=== PATIENT | male | born 1965 | race Two or more races ===

== ENCOUNTER 2025-07-06 10:44 | Emergency (ER) | payer MEDICAID, SELFPAY ==
[2025-07-06 11:03] VITALS: BP 136/84; PULSE 97; RESP 18; TEMP 37; O2SAT 96
--- NOTE | 2025-07-06 11:09 | EKG_ITS ---
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1965 Requested By: Brian Beach Order Number: [id number] Reading MD: Brian Beach Measurements Intervals [place] Rate: 97 P: 63 ME: 141 QRS: 52 QRSD: 106 T: 50 QT: 327 QTc: 417 Interpretive Statements SINUS RHYTHM MODERATE T-WAVE ABNORMALITY, CONSIDER LATERAL ISCHEMIA [-0.1+ mV T-WAVE IN I/aVL/V5/V6] MODERATE T-WAVE ABNORMALITY, CONSIDER INFERIOR ISCHEMIA [-0.1+ mV T-WAVE IN II/aVF] Compared to ECG 12/16/2023 14:08:30 T-wave abnormality now present Possible ischemia now present Sinus tachycardia no longer present Left ventricular hypertrophy no longer present ST (T wave) deviation no longer present /store/S0/[id number]
--- NOTE | 2025-07-06 11:09 | XR_ITS ---
Examination: PA lateral chest 2 views TECHNIQUE: Upright PA lateral chest 2 views Date and time: July 06, 2025 1121 hours, comparison December 16, 2023 INDICATIONS: Chest pain shortness of breath beginning 2 weeks ago FINDINGS: Normal heart size. CABG. Numerous surgical clips in the right exit low. No pneumonia or pulmonary edema Moderate thoracic spondylosis IMPRESSION: No active disease
--- NOTE | 2025-07-06 11:09 | PD.EDRME ---
Rapid Medical Screening Exam RME Arrival date/time: 07/06/25 10:44 60-year-old male with a history of type 2 diabetes, ACS, and open heart surgery and heart transplant done on 2021, hypertension presents to the emergency room with a chief complaint of shortness of breath and coughing up phlegm x 3 days I have greeted and performed a focused initial assessment of this patient. A comprehensive ED assessment and evaluation of the patient, analysis of all test results, and completion of the medical decision making process will be conducted by additional ED providers. Chief Complaint: Flu Like Symptoms Time Seen by Provider: 07/06/25 10:59 Vital signs: Vital Signs Temperature 98.6 F 07/06/25 11:03 Pulse Rate 97 07/06/25 11:03 Respiratory Rate 18 07/06/25 11:03 Blood Pressure 136/84 H 07/06/25 11:03 Pulse Oximetry (%) 96 07/06/25 11:03 Oxygen Delivery Method Room Air 07/06/25 11:03 Vital signs reviewed by provider: Yes
[2025-07-06 11:40] LABS: Basophils # (Auto) 0.0 Thou/mm3 (0.0-0.2); Basophils % (Auto) 0 % (0-2.5); Eosinophils # (Auto) 0.2 Thou/mm3 (0.0-0.5); Eosinophils % (Auto) 2 % (0-10); Hematocrit 34.8 % (41.0-53.0); Hemoglobin 11.4 g/dL (13.5-16.0); Immature Granulocytes Auto 0.04 Thou/mm3 (0.00-0.00); Lymphocytes # (Auto) 1.8 Thou/mm3 (1.0-4.8); Lymphocytes % (Auto) 17 % (10-50); Mean Corpuscular HGB Conc 32.8 g/dl (31.0-37.0); Mean Corpuscular Hemoglobin 28.5 pg (25.0-35.0); Mean Corpuscular Volume 87 fL (80-100); Monocytes # (Auto) 0.9 Thou/mm3 (0.0-0.8); Monocytes % (Auto) 9 % (0-12); Neutrophils # (Auto) 7.3 Thou/mm3 (1.8-7.7); Neutrophils % (Auto) 72 % (37-80); Nucleated Red Blood Cell # 0.00 Thou/mm3 (0.00-0.00); Nucleated Red Blood Cell % 0 /100 WBC (0); Platelet Count 190 Thou/mm3 (140-440); RDW Standard Deviation 43.0 fL (35.1-43.9); Red Blood Count 4.00 Miln/mm3 (4.50-5.90); White Blood Count 10.2 Thou/mm3 (3.8-10.6)
[2025-07-06 11:53] LABS: INR 1.0 (0.9-1.3); Partial Thromboplastin Time 27.9 Seconds (22.0-36.0); Prothrombin Time 11.4 Seconds (9.0-12.2)
[2025-07-06 11:57] LABS: B-Type Natriuretic Peptide 125 pg/mL (0-100)
[2025-07-06 12:07] LABS: Alanine Aminotransferase 27 U/L (10-49); Albumin, Serum 4.4 gm/dL (3.4-4.8); Albumin/Globulin Ratio 1.5 (1.2-2.2); Alkaline Phosphatase 91 U/L (46-116); Anion Gap 11 (7-16); Aspartate Amino Transferase 30 U/L (0-34); BUN/Creatinine Ratio 15 Ratio (12-20); Bilirubin,Total 1.1 mg/dL (0.3-1.2); Blood Urea Nitrogen 34 mg/dL (9-23); Calcium 10.0 mg/dL (8.3-10.6); Calcium (Corrected) 10.0 mg/dL (8.5-10.1); Carbon Dioxide 22.3 mMol/L (20.0-31.0); Chloride 103 mMol/L (98-107); Creatinine (Component) 2.3 mg/dL (0.6-1.3); Estimated Creatinine Clearance 38.7 mL/min (>60); Globulin 2.9 gm/dL (2.3-3.5); Glucose 177 mg/dL (74-106); Osmolality,Calculated 283 (275-295); Potassium 4.8 mMol/L (3.4-5.1); Sodium 136 mMol/L (136-145); Total Protein 7.3 gm/dL (5.7-8.2); Troponin I < 0.020 ng/mL (0.0-0.045); eGFR 31 See Note
[2025-07-06 12:23] LABS: Collection Type, Urine Clean Catch
--- NOTE | 2025-07-06 12:29 | PD.EDRME ---
Rapid Medical Screening Exam RME Arrival date/time: 07/06/25 10:44 07/06/25 10:44 60-year-old male with a history of type 2 diabetes, ACS, and open heart surgery and heart transplant done on 2021, hypertension presents to the emergency room with a chief complaint of shortness of breath and coughing up phlegm x 3 days I have greeted and performed a focused initial assessment of this patient. A comprehensive ED assessment and evaluation of the patient, analysis of all test results, and completion of the medical decision making process will be conducted by additional ED providers. Chief Complaint: Flu Like Symptoms Time Seen by Provider: 07/06/25 10:59 Vital signs: Vital Signs Temperature 98.6 F 07/06/25 11:03 Pulse Rate 97 07/06/25 11:03 Respiratory Rate 18 07/06/25 11:03 Blood Pressure 136/84 H 07/06/25 11:03 Pulse Oximetry (%) 96 07/06/25 11:03 Oxygen Delivery Method Room Air 07/06/25 11:03 RME Narrative: 07/06/25 10:44 60-year-old male with a history of type 2 diabetes, ACS, and open heart surgery and heart transplant done on 2021, hypertension presents to the emergency room with a chief complaint of shortness of breath and coughing up phlegm x 3 days I have greeted and performed a focused initial assessment of this patient. A comprehensive ED assessment and evaluation of the patient, analysis of all test results, and completion of the medical decision making process will be conducted by additional ED providers.
[2025-07-06 12:45] LABS: Bilirubin,Urine Negative (Negative); Blood,Urine Negative (Negative); Clarity,Urine Clear (Clear/Hazy); Color,Urine Lt-Yellow (Lt Yel-Yel); Culture Indicated,Urine Not Indicated; Glucose, Urine 4+ (Negative); Ketones,Urine Negative (Negative); Leukocyte Esterase,Urine Negative (Negative); Nitrite,Urine Negative (Negative); PH,Urine 6.0 (5.0-7.0); Protein,Urine Negative (Neg - Trace); RBC,Urine < 1 /hpf (0-3); Specific Gravity,Urine 1.024 (1.001-1.035); Squamous Epithelial Cell,Urine 1 /hpf (0-5); Urobilinogen,Urine Negative mg/dL (0.0-1.0); WBC,Urine < 1 /hpf (0-5)
[2025-07-06 12:48] VITALS: BP 115/80; PULSE 99; RESP 16; TEMP 36.3; O2SAT 98
--- NOTE | 2025-07-06 13:14 | EDNOTE_ITS ---
Upper Respiratory Inf. RME/HPI General Chief Complaint: Flu Like Symptoms Stated Complaint: COUGH X 2 WKS Time Seen by Provider: 07/06/25 10:59 Arrival date/time: 07/06/25 10:44 RME / HPI RME / HPI Narrative: 07/06/25 10:44 60-year-old male with a history of type 2 diabetes, ACS, and open heart surgery and heart transplant done on 2021, hypertension presents to the emergency room with a chief complaint of shortness of breath and coughing up phlegm x 3 days I have greeted and performed a focused initial assessment of this patient. A comprehensive ED assessment and evaluation of the patient, analysis of all test results, and completion of the medical decision making process will be conducted by additional ED providers DR. NICOLASA NEVAREZ ED EVALUATION 60 year old male with history of s/p heart transplant in 2022 [facility] [place], hypertension, diabetes presents to the ED for evaluation of productive cough beginning 2 weeks ago. Phlegm is brown-yellow in color. Reportedly consulted with sales and marketing representative regarding issues and prescribed an antibiotic which he completed last week. No other associated symptoms or complaints reported. Denies fevers, chills, chest pain, abdominal pain, n/v/d. Related Data Home Medications ?Medication ?Instructions ?Recorded ?Confirmed aspirin 81 mg chewable tablet 81 mg PO QDAY 10/13/23 1 12/14/22 atovaquone 750 mg/5 mL oral 1,500 mg PO DAILY 10/13/23 10/13/23 suspension calcium carbonate 500 mg PO BID 10/13/2310/13 ergocalciferol (vitamin D2) 1,250 1,250 mcg PO QWEEK 1 12/14/22 10/13/23 mcg (50,000 unit) capsule (Vitamin D2) ferrous sulfate 325 mg (65 mg 325 mg PO TID 10/13/23 1 12/14/22 iron) tablet fluconazole 200 mg tablet 200 mg PO QDAY 10/13/2309/28 furosemide 20 mg tablet (Lasix) 20 mg PO QDAY 10/13/23 10/13/23 losartan 25 mg tablet 25 mg PO QDAY 10/13/2310/13 melatonin 5 mg tablet 5 mg PO HS PRN Insomnia 09/2810/13/23 mycophenolate mofetil 250 mg 1,000 mg PO BID 10/13/23 10/13/23 capsule (CellCept) pantoprazole 40 mg tablet,delayed 40 mg PO DAILY 10/1310/13/23 release pravastatin 40 mg tablet 40 mg PO QDAY 10/13/2310/13 prednisone 1 mg tablet 1 mg PO QDAY 10/13/23 prednisone 5 mg tablet 10 mg PO QDAY 10/13/2310/13 sodium bicarbonate 650 mg tablet 1,250 mg PO BID 10/1310/13/23 tacrolimus 1 mg capsule, 1 mg PO Q12H 10/13/23 immediate-release Previous Rx's ?Medication ?Instructions ?Recorded amoxicillin 875 mg-potassium 1 tab PO BID 7 days #14 t abs 07/06/25 clavulanate 125 mg tablet doxycycline monohydrate 100 mg 100 mg PO BID 7 days #1 4 tabs 07/06/25 tablet Allergies Allergy/AdvReac Type Severity Reaction Status Date / Time heparin Allergy Unknown Verified 07/06/25 10:47 Review of Systems Review of Systems Systems Reviewed: All systems reviewed, normal except as documented Past Medical History Past Medical History CARDIAC: Positive Cardiac Disorders, Coronary Artery Disease, Hypercholesterolemia and Hypertension ENDOCRINE: Positive Diabetes Mellitus Type 2 Surgical History SURGICAL: Positive Cardiac Surgery and Coronary Artery Bypass Graft Social History SMOKING STATUS: Never smoker 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, 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) ED Exam Narrative Physical exam: See MDM Course Quality Measures none Orders Category Date Time Status Bedside COVID-19 Antigen Test NOW Care 07/06/25 11:09 Completed Bedside Influenza A&B Antigen Test NOW Care 07/06/25 11:09 Completed EKG (ED ONLY) *Do not use* NOW Care 07/06/25 11:09 Completed EKG (ED Only) Stat Exams 07/06/25 11:09 Draft XR chest 2V Stat Exams 07/06/25 11:09 Completed B-Type Natriuretic Peptide Stat Lab 07/06/25 11:23 Completed CBC Stat Lab 07/06/25 11:23 Completed Comprehensive Metabolic Panel Stat Lab 07/06/25 11:23 Completed Partial Thromboplastin Time Stat Lab 07/06/25 11:23 Completed Prothrombin Time with INR Stat Lab 07/06/25 11:23 Completed Troponin I Stat Lab 07/06/25 11:23 Completed Urinalysis, C/S if Indicated Stat Lab 07/06/25 12:00 Completed Vital Signs Vital signs: Vital Signs Temperature 98.6 F 07/06/25 11:03 Pulse Rate 97 07/06/25 11:03 Respiratory Rate 18 07/06/25 11:03 Blood Pressure 136/84 H 07/06/25 11:03 Pulse Oximetry (%) 96 07/06/25 11:03 Oxygen Delivery Method Room Air 07/06/25 11:03 Pulse ox is 96% on room air which is adequate. Upper Respiratory Infection MDM Narrative MDM Narrative:: This section includes all my notes and documentations, including HPI, PE, and ED course. Babatunde Elam MD ? HPI: 60 year old male with history of s/p heart transplant in 2022 [facility] [place], hypertension, diabetes presents to the ED for evaluation of productive cough beginning 2 weeks ago. Phlegm is brown-yellow in color. Reportedly consulted with sales and marketing representative regarding issues and prescribed an antibiotic which he completed last week. No other associated symptoms or complaints reported. Denies fevers, chills, chest pain, abdominal pain, n/v/d. ? ROS: All negative except as documented in HPI. ? PE: GENERAL APPEARANCE:? alert and oriented x 4, well-developed, well-nourished, no acute distress VITALS: All vitals were reviewed and the pulse ox is % on room air, which is normal according to my interpretation. HEENT: Normocephalic, atraumatic; pupils equal, round, reactive to light; EOMI; mucous membranes pink, moist; oropharynx clear NECK: Supple LUNGS: CTABL; no wheezes, no rales, no rhonchi HEART: Regular rate, regular rhythm; normal S1, S2; no murmurs ABDOMEN: non distended; normal BS;? soft, no tenderness, no guarding, no rebound; no masses, no organomegaly, no hernia?? EXTREMITIES:? atraumatic; no edema NEUROLOGIC: awake; alert and oriented x4; cranial nerves II-XII grossly intact; no focal sensory or motor deficits PSYCHIATRIC:? appropriate mood and affect SKIN: warm, dry, normal color; no rashes ? I reviewed all diagnostic test results: My interpretation of the chest x-ray is nml diaphragmatic edge, sharp costophreic angles, nml cardiac silhouette, bilateral peribronchial thickening My interpretation of EKG @ 1110h: Normal sinus rhythm, rate 97, normal axis, no ectopy, T-wave inversion in II III aVF V3-V6, no STEMI. ? Blood tests and urine test: No leukocytosis, renal insufficiency, troponin within normal limits, UA negative for infection. Covid/Influenza: Negative ? At this point, diagnoses include: Bronchitis and chronic renal insufficiency. ? Treatment here included: No medications administered in the ED. ? Significant improvement noted. ? Recommended outpatient care. ? Based on my best medical judgment, made decision no further evaluation or treatment indicated at this time. Patient understands and agrees to the customized discharge instructions and printed, see below. ? Discharge instructions from Dr. Elam: Today you were seen in the emergency department for 2 weeks of cough. Your chest x-ray appears to show bronchitis, which is inflammation of the main breathing tubes. I have called in antibiotics to your pharmacy. 1 antibiotic is called doxycycline and the other 1 is called amoxicillin/clavulanate. You should take both of these medicines twice a day until they are completely gone please You should continue taking all of your home medications as then as usual. All of your blood tests were very reassuring here in the ER today. There does not appear to be any problem at all with your heart. Please return to the emergency department if you have any worsening or any further medical problems and we will help you. Otherwise you should follow-up with your primary care doctor within the next several days. You should also call your transplant team and let them know that you were here in the emergency department today. Let them know that you are troponin was normal, your beta natruretic peptide was normal, your chest x-ray shows a bronchitis pattern. Also you should let them know which antibiotics you were prescribed Patient data External records reviewed:: [facility] previous records Clinical information provided by:: patient Social determinants that could affect healthcare access:: none Patient has the following chronic illnesses:: s/p heart transplant in 2022 [facility] [place], hypertension, diabetes How is presenting disease/condition affected by chronic disease/condition?: exacerbated by Evaluation data The following diagnostics were reviewed and interpreted by me:: lab results, radiology exam(s) and EKG tracing(s) Lab and/or radiology exams considered but not ordered:: None Interpretation Summary: See [facility] Medications / Prescriptions Medications or Prescriptions considered but not ordered:: None Medication administrations:: None Consultations Consultation(s) initiated? (list below): No Diagnosis Upper Respiratory Differential Diagnosis: upper respiratory infection, viral infection, bronchitis and influenza Most likely diagnosis given after review of the tests above:: Bronchitis Chronic renal insufficiency Admission Indicated Admission indicated?: not indicated Admission Request Was there a request for admission?: No Disposition Plan Disposition Plan: Discharge Discharge Attestation Discharge Attestation: The patient and all family members were given an opportunity to ask questions and understood the discharge instructions. Discharge instructions specifically effects, indications for sooner follow up or return to the emergency department, and the expected course of current diagnosis. Patient condition: Stable Discharge Plan Plan Patient Disposition: HOME (Self Care) Discharge Disposition comment: Stable for discharge home Patient condition on transfer: Stable Prescriptions/Referrals Prescriptions/Med Rec: New amoxicillin-pot clavulanate 875-125 mg tablet 1 tab PO BID 7 Days Qty: 14 0RF doxycycline monohydrate 100 mg tablet 100 mg PO BID 7 Days Qty: 14 0RF No Action mycophenolate mofetil [CellCept] 250 mg Capsule 1,000 mg PO BID sodium bicarbonate 650 mg Tablet 1,250 mg PO BID pravastatin 40 mg Tablet 40 mg PO QDAY calcium carbonate 500 mg calcium (1,250 mg) tablet 500 mg PO BID losartan 25 mg Tablet 25 mg PO QDAY furosemide [Lasix] 20 mg Tablet 20 mg PO QDAY ergocalciferol (vitamin D2) [Vitamin D2] 1,250 mcg (50,000 unit) Capsule 1,250 mcg PO QWEEK tacrolimus 1 mg Capsule 1 mg PO Q12H melatonin 5 mg Tablet 5 mg PO HS PRN (Reason: Insomnia) fluconazole 200 mg Tablet 200 mg PO QDAY prednisone 5 mg Tablet 10 mg PO QDAY prednisone 1 mg Tablet 1 mg PO QDAY pantoprazole 40 mg Tablet,Delayed Release (Dr/Ec) 40 mg PO DAILY ferrous sulfate 325 mg (65 mg iron) Tablet 325 mg PO TID aspirin 81 mg Tablet,Chewable 81 mg PO QDAY atovaquone 750 mg/5 mL Suspension 1,500 mg PO DAILY Referrals: Richard Walls MD [Primary Care Provider, Family Practice] - In 1 week Problem List Clinical Impression: Bronchitis, Chronic kidney insufficiency Patient/Caregiver Discharge Instructions Discharge Activity: activity as tolerated Diet Instructions: No restrictions Education Materials: ED Upper Resp Infec Abx Tx, ED Chronic Kidney Disease (CKD) Additional Instructions: Today you were seen in the emergency department for 2 weeks of cough. Your chest x-ray appears to show bronchitis, which is inflammation of the main breathing tubes. I have called in antibiotics to your pharmacy. 1 antibiotic is called doxycycline and the other 1 is called amoxicillin/clavulanate. You should take both of these medicines twice a day until they are completely gone please You should continue taking all of your home medications as then as usual. All of your blood tests were very reassuring here in the ER today. There does not appear to be any problem at all with your heart. Please return to the emergency department if you have any worsening or any further medical problems and we will help you. Otherwise you should follow-up with your primary care doctor within the next several days. You should also call your transplant team and let them know that you were here in the emergency department today. Let them know that you are troponin was normal, your beta natruretic peptide was normal, your chest x-ray shows a bronchitis pattern. Also you should let them know which antibiotics you were prescribed Print Language: Georgian Stand Alone Forms: Elena Award Info., Patient Portal Info Letter
== END 2025-07-06 13:45 | disposition home or self-care (01) ==
PROVIDERS: Nurse Practitioner Family; Emergency Provider Emergency Medicine; PCP Family Medicine
DX: J40 Bronchitis, not specified as acute or chronic (principal); I12.9 Hypertensive chronic kidney disease with stage 1 through stage 4 chronic kidney disease, or unspecified chronic kidney disease; E11.22 Type 2 diabetes mellitus with diabetic chronic kidney disease; N18.9 Chronic kidney disease, unspecified; R94.31 Abnormal electrocardiogram [ECG] [EKG]; E78.00 Pure hypercholesterolemia, unspecified; Z95.1 Presence of aortocoronary bypass graft; Z94.1 Heart transplant status
CPT/HCPCS: 36415; 71046; 80053; 81001; 83880; 84484; 85025; 85610; 85730; 87400; 87811; 93005; 99283

== ENCOUNTER → 2025-08-06 | Outpatient (CLI) | payer MEDICAID, SELFPAY ==
--- NOTE | 2025-08-06 12:40 | XR_ITS ---
Examination: Bone densitometry Date and time of exam: August 06, 2025, 1013 hours INDICATIONS: 60-year-old male with diagnosis age-related osteoporosis, diabetic Technique: Lumbar spine and hip total bone mineralization values of an calculated. Peak reference and age match control results have been displayed. Findings: Lumbar spine total bone mineralization is 1.072 gm/cm2. This is 0.2 standard deviations below peak reference. This is 0.5 standard deviations above age-matched controls. Hip total bone mineralization is 0.904 gm/cm2 This is 1.1 standard deviations below peak reference. This is 0.7 standard deviations below age-matched controls Impression: There is normal mineralization based on lumbar spine measurements. There is osteopenia based on hip measurements
== END | disposition home or self-care (01) ==
LOC: CDIM 09:52
PROVIDERS: Referring Provider Family Medicine; Visit Provider Family Medicine
DX: M85.88 Other specified disorders of bone density and structure, other site (principal)
CPT/HCPCS: 77080

== ENCOUNTER 2025-08-15 16:51 | Observation (INO) | payer MEDICAID, SELFPAY ==
[2025-08-15 16:52] VITALS: BMI 29.0
--- NOTE | 2025-08-15 16:58 | EKG_ITS ---
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
[2025-08-15 17:09] VITALS: BP 174/96; PULSE 104; RESP 17; TEMP 37.1; O2SAT 98
--- NOTE | 2025-08-15 18:11 | XR_ITS ---
EXAMINATION: PA lateral chest 2 views TECHNIQUE: Upright PA and lateral chest 2 views Date and time: August 15, 2025, 1812 hours, comparison 07/06/2025 INDICATIONS: Right-sided chest pain beginning 3 days ago FINDINGS: Surgical clips upper right chest axilla Normal heart size Surgical clips overlie the left hilum No pneumonia or pulmonary edema Moderate thoracic spondylosis IMPRESSION: No pneumonia or pulmonary edema
[2025-08-15 18:40] LABS: Basophils # (Auto) 0.1 Thou/mm3 (0.0-0.2); Basophils % (Auto) 1 % (0-2.5); Eosinophils # (Auto) 0.7 Thou/mm3 (0.0-0.5); Eosinophils % (Auto) 8 % (0-10); Hematocrit 38.1 % (41.0-53.0); Hemoglobin 12.9 g/dL (13.5-16.0); Immature Granulocytes Auto 0.02 Thou/mm3 (0.00-0.00); Lymphocytes # (Auto) 3.2 Thou/mm3 (1.0-4.8); Lymphocytes % (Auto) 35 % (10-50); Mean Corpuscular HGB Conc 33.9 g/dl (31.0-37.0); Mean Corpuscular Hemoglobin 29.1 pg (25.0-35.0); Mean Corpuscular Volume 86 fL (80-100); Monocytes # (Auto) 0.6 Thou/mm3 (0.0-0.8); Monocytes % (Auto) 6 % (0-12); Neutrophils # (Auto) 4.6 Thou/mm3 (1.8-7.7); Neutrophils % (Auto) 50 % (37-80); Nucleated Red Blood Cell # 0.00 Thou/mm3 (0.00-0.00); Nucleated Red Blood Cell % 0 /100 WBC (0); Platelet Count 218 Thou/mm3 (140-440); RDW Standard Deviation 44.1 fL (35.1-43.9); Red Blood Count 4.43 Miln/mm3 (4.50-5.90); White Blood Count 9.1 Thou/mm3 (3.8-10.6)
[2025-08-15 18:56] LABS: INR 1.0 (0.9-1.3); Prothrombin Time 10.5 Seconds (9.0-12.2)
[2025-08-15 19:00] LABS: Alanine Aminotransferase 29 U/L (10-49); Albumin, Serum 5.2 gm/dL (3.4-4.8); Albumin/Globulin Ratio 1.7 (1.2-2.2); Alkaline Phosphatase 106 U/L (46-116); Anion Gap 12 (7-16); Aspartate Amino Transferase 13 U/L (0-34); B-Type Natriuretic Peptide 55 pg/mL (0-100); BUN/Creatinine Ratio 14 Ratio (12-20); Bilirubin,Total 0.9 mg/dL (0.3-1.2); Blood Urea Nitrogen 41 mg/dL (9-23); Calcium 9.9 mg/dL (8.3-10.6); Calcium (Corrected) 9.9 mg/dL (8.5-10.1); Carbon Dioxide 22.6 mMol/L (20.0-31.0); Chloride 102 mMol/L (98-107); Creatinine (Component) 3.0 mg/dL (0.6-1.3); Estimated Creatinine Clearance 29.9 mL/min (>60); Globulin 3.0 gm/dL (2.3-3.5); Glucose 210 mg/dL (74-106); Osmolality,Calculated 289 (275-295); Potassium 5.0 mMol/L (3.4-5.1); Sodium 137 mMol/L (136-145); Total Protein 8.2 gm/dL (5.7-8.2); Troponin I < 0.020 ng/mL (0.0-0.045); eGFR 23 See Note
--- NOTE | 2025-08-15 19:22 | EDNOTE_ITS ---
ED Chest Pain RME/HPI General Chief Complaint: Chest Pain Stated Complaint: R UPPER CHEST PAIN X3 WEEKS Time Seen by Provider: 08/15/25 17:45 Arrival date/time: 08/15/25 16:51 Limitations: no limitations RME / HPI RME / HPI narrative: Patient is a 60-year-old male with medical history notable for heart transplant performed in 2022 at [facility] [place], chronic kidney disease follows with Dr. Méndez, this in the Emergency Department concerns for chest pain. Patient states that he is compliant with his antirejection medications, his chest pain has been present on and off for the last few weeks. It is worse with palpation along the right chest wall. Patient does not know if this is related to his heart or the fact that he has been increasing his repetitions with lifting weights. Denies fevers chills nausea vomiting cough runny nose abdominal pain dysuria hematuria melena bloody stools. Denies drugs alcohol smoking. No shortness of breath. 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 Related Data Home Medications ?Medication ?Instructions ?Recorded ?Confirmed aspirin 81 mg chewable tablet 81 mg PO QDAY 10/13/23 1 12/14/22 atovaquone 750 mg/5 mL oral 1,500 mg PO DAILY 10/13/23 10/13/23 suspension calcium carbonate 500 mg PO BID 10/13/2310/13 ergocalciferol (vitamin D2) 1,250 1,250 mcg PO QWEEK 1 12/14/22 10/13/23 mcg (50,000 unit) capsule (Vitamin D2) ferrous sulfate 325 mg (65 mg 325 mg PO TID 10/13/23 1 12/14/22 iron) tablet fluconazole 200 mg tablet 200 mg PO QDAY 10/13/2309/28 furosemide 20 mg tablet (Lasix) 20 mg PO QDAY 10/13/23 10/13/23 losartan 25 mg tablet 25 mg PO QDAY 10/13/2310/13 melatonin 5 mg tablet 5 mg PO HS PRN Insomnia 09/2810/13/23 mycophenolate mofetil 250 mg 1,000 mg PO BID 10/13/23 10/13/23 capsule (CellCept) pantoprazole 40 mg tablet,delayed 40 mg PO DAILY 12/16 /23 12/16/23 release pravastatin 40 mg tablet 40 mg PO QDAY 10/13/2310/13 prednisone 1 mg tablet 1 mg PO QDAY 10/13/23 prednisone 5 mg tablet 10 mg PO QDAY 10/13/2310/13 sodium bicarbonate 650 mg tablet 1,250 mg PO BID 10/1310/13/23 tacrolimus 1 mg capsule, 1 mg PO Q12H 10/13/23 immediate-release Allergies Allergy/AdvReac Type Severity Reaction Status Date / Time heparin Allergy Unknown Verified 08/15/25 16:57 ED Exam General Limitations: Present no limitations General appearance: Present alert and in no apparent distress Head Head exam: Present atraumatic and normocephalic Eye Eye exam: Present normal appearance and PERRL ENT ENT exam: Present normal exam and normal oropharynx Neck Neck exam: Present normal inspection and trachea midline Chest Chest inspection: Present normal inspection, symmetric chest wall rise and tenderness (Mild tenderness palpation along the right chest wall, no erythema fluctuance or crepitus) Respiratory Respiratory exam: Present normal lung sounds bilaterally; Absent respiratory distress Cardiovascular Cardiovascular exam: Present normal rhythm and tachycardia Abdominal Exam Abdominal exam: Present soft; Absent distention or tenderness Extremities Exam Extremities exam: Present normal inspection Neurological Exam Neurological exam: Present alert, oriented X3 and CN II-XII intact Psychiatric Psychiatric exam: Present normal affect and normal mood Skin Skin exam: Present warm, dry and intact Course Quality Measures none Orders Category Date Time Status Admit to Inpatient Status Routine Admission 08/15/25 21:27 Active Patient Condition Routine Admission 08/15/25 21:27 Ordered Activity as Tolerated Routine Care 08/15/25 21:27 Ordered Bedside Blood Glucose ACHS Care 08/15/25 21:27 Active EKG (ED ONLY) *Do not use* NOW Care 08/15/25 16:58 Completed Notify provider NEEDED Care 08/15/25 21:27 Active Obtain weight daily Care 08/15/25 21:27 Active Strict Intake and Output Routine Care 08/15/25 21:27 Ordered Diet Cardiac Diet 08/16/25 Breakfast Active CXR2 [XR chest 2V] Stat Exams 08/15/25 18:11 Completed EKG (ED Only) Stat Exams 08/15/25 16:58 Draft BNP [B-Type Natriuretic Peptide] Stat Lab 08/15/25 18:28 Completed CBC AM DRAW Lab 08/16/25 05:00 Ordered CBC AM DRAW Lab 08/17/25 05:00 Ordered CBC AM DRAW Lab 08/18/25 05:00 Ordered CBC Stat Lab 08/15/25 18:28 Completed CMP [Comprehensive Metabolic Panel] Stat Lab 08/15/25 18:28 Completed Comprehensive Metabolic Panel AM DRAW Lab 08/16/25 05:00 Ordered Comprehensive Metabolic Panel AM DRAW Lab 08/17/25 05:00 Ordered Comprehensive Metabolic Panel AM DRAW Lab 08/18/25 05:00 Ordered Magnesium AM DRAW Lab 08/16/25 05:00 Ordered Magnesium AM DRAW Lab 08/17/25 05:00 Ordered Magnesium AM DRAW Lab 08/18/25 05:00 Ordered PT [Prothrombin Time with INR] Stat Lab 08/15/25 18:28 Completed Phosphorous AM DRAW Lab 08/16/25 05:00 Ordered Phosphorous AM DRAW Lab 08/17/25 05:00 Ordered Phosphorous AM DRAW Lab 08/18/25 05:00 Ordered Troponin I Stat Lab 08/15/25 18:28 Completed Troponin I Stat Lab 08/15/25 20:10 Completed Acetaminophen Tab [Tylenol Tab] Med 08/15/25 21:27 Ordered 650 mg PO Q6H PRN Acetaminophen Tab [Tylenol Tab] Med 08/15/25 21:27 Ordered 650 mg PO Q6H PRN Aspirin Chew Med 08/15/25 18:11 Discontinued 81 mg PO X1 ONE Aspirin [Ecotrin] Med 08/16/25 09:00 Ordered 81 mg PO QDAY Atorvastatin Calcium [Lipitor] Med 08/16/25 21:00 Ordered 20 mg PO HS Dextrose 50% Syr [D50w Syringe Abboject] Med 08/15/25 21:27 Ordered 25 ml IV Q15MIN PRN Dextrose 50% Syr [D50w Syringe Abboject] Med 08/15/25 21:27 Ordered 50 ml IV Q15MIN PRN Enoxaparin [Lovenox] Med 08/16/25 09:00 Ordered 40 mg SC QDAY Gabapentin Med 08/15/25 22:00 Ordered 100 mg PO TID Glucagon Inj Med 08/15/25 21:27 Ordered 1 mg IM Q15MIN PRN INSULIN LISPRO (AdmeLOG) [HumaLOG] Med 08/16/25 07:30 Ordered See Protocol SC AC Influenza Quad Vaccine Med 08/15/25 16:56 Discontinued 0.5 ml IMI .ONCE ONE Mycophenolate [Cellcept] Med 08/15/25 21:30 Ordered 500 mg PO BID Ondansetron Inj [Zofran Inj] Med 08/15/25 21:27 Ordered 4 mg IVP Q6H PRN Ringers Lactated 1000 ml [Lactated Ringers] 1,000 ml Med 08/15/25 19:51 Discontinued IV 999 mls/hr Ringers Lactated 500 ml [Lactated Ringers] 500 ml Med 08/15/25 19:26 Discontinued IV 500 mls/hr Tacrolimus [Prograf] Med 08/16/25 09:00 Ordered 1 mg PO DAILY Tacrolimus [Prograf] Med 08/16/25 22:00 Ordered 1.5 mg PO HS amLODIPine BESYLATE [Norvasc] Med 08/16/25 09:00 Ordered 5 mg PO QDAY Code Status Routine Oth 08/15/25 21:27 Ordered Vital Signs Vital signs: Vital Signs Temperature 98.7 F 08/15/25 17:09 Pulse Rate 104 H 08/15/25 17:09 Respiratory Rate 17 08/15/25 17:09 Blood Pressure 174/96 H 08/15/25 17:09 Pulse Oximetry (%) 98 08/15/25 17:09 Oxygen Delivery Method Room Air 08/15/25 17:09 Chest Pain MDM Narrative MDM Narrative:: Patient is a 60-year-old male with medical history notable for transplant of the heart in 2022 performed at [facility] by send emergency room concerns for chest pain has been on and off for the last 3 weeks. Vital signs and exam as listed. Concern for musculoskeletal strain, ACS arrhythmia electrolyte abnormality among others. Patient chest exam normal, mild tenderness palpation along the right breast, no fluctuance no crepitus no erythema no warmth. Less likely deep space chest infection. Also considered costochondritis. Ordered labs EKG chest x-ray also offered medication for symptom relief. Patient is compliant with his antirejection medications including tacrolimus and myc ophenolate. EKG performed today at 1700 notable for sinus tachycardia, heart 102, normal intervals, non spec t wave changes, not a cardiac alert. Labs without acute hematologic abnormality, hemoglobin is 12.9. This is patient's baseline. Patient without acute electrolyte abnormality, patient creatinine is 3.0, patient's creatinine over the last couple years has fluctuated from normal to proximately 3. In 2023 his creatinine was normal however. Will provide patient with gentle hydration. 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 Will order repeat troponin. Repeat troponin without elevation. Patient states that he follows with stiff straw hat washer Dr. Michel. Updated patient on results of his workup, my concern that patient has an acute kidney injury on his chronic kidney disease. Patient agreement with admission. Discussed case with on-call hospitalist, kindly accepts patient for admission Patient data External records reviewed:: [facility] previous records Clinical information provided by:: patient Social determinants that could affect healthcare access:: none Patient has the following chronic illnesses:: See MDM How is presenting disease/condition affected by chronic disease/condition?: exacerbated by Evaluation data The following diagnostics were reviewed and interpreted by me:: lab results, radiology exam(s) and EKG tracing(s) Lab and/or radiology exams considered but not ordered:: None Interpretation Summary: See MDM Medications / Prescriptions Medications or Prescriptions considered but not ordered:: None Medication administrations:: Medication Administration History Acetaminophen (Acetaminophen 325 Mg Tablet) 650 mg PO Q6H PRN PRN Reason: Fever >100.3 Stop: 09/14/25 21:26 Acetaminophen (Acetaminophen 325 Mg Tablet) 650 mg PO Q6H PRN PRN Reason: PAIN SCALE 1-3 (mild Stop: 09/14/25 21:26 Amlodipine Besylate (Amlodipine Besylate 5 Mg Tablet) 5 mg PO QDAY [facility] Stop: 09/15/25 08:59 Aspirin (Aspirin Ec 81 Mg Tabec) 81 mg PO QDAY [facility] Stop: 09/15/25 08:59 Atorvastatin Calcium (Atorvastatin Calcium 20 Mg Tablet) 20 mg PO HS [facility] Stop: 09/15/25 20:59 Dextrose (Dextrose 50%-Water Inj 50 Ml Syringe) 25 ml IV Q15MIN PRN PRN Reason: BG 50-70 responsive npo pt Stop: 09/14/25 21:26 Dextrose (Dextrose 50%-Water Inj 50 Ml Syringe) 50 ml IV Q15MIN PRN PRN Reason: BG <50 OR BG <70 & pt unresponsive Stop: 09/14/25 21:26 Enoxaparin Sodium (Enoxaparin Sod Inj 40 Mg/0.4 Ml Syringe) 40 mg SC QDAY [facility] Stop: 08/30/25 08:59 Gabapentin (Gabapentin 100 Mg Capsule) 100 mg PO TID [facility] Stop: 09/14/25 21:59 Glucagon (Glucagon Inj 1 Mg Vial) 1 mg IM Q15MIN PRN PRN Reason: BG <70, and no IV access Insulin Human Lispro (Insulin Lispro (Admelog) 1 Unit/0.01 Ml Unit) 0 unit SC AC [facility]; Protocol Stop: 09/15/25 07:29 Mycophenolate Mofetil (Mycophenolate 250 Mg Capsule) 500 mg PO BID [facility] Stop: 09/14/25 21:29 Ondansetron HCl (Ondansetron Inj 2 Mg/Ml Inj 2 Ml) 4 mg IVP Q6H PRN; Protocol PRN Reason: NAUSEA OR VOMITING Stop: 09/14/25 21:26 Tacrolimus (Tacrolimus 1 Mg Capsule) 1 mg PO DAILY [facility] Stop: 09/15/25 08:59 Tacrolimus (Tacrolimus 0.5 Mg Capsule) 1.5 mg PO HS [facility] Stop: 09/15/25 21:59 Discontinued Medications Aspirin (Aspirin 81 Mg Chew) 81 mg PO X1 ONE Stop: 08/15/25 18:12 Last Admin: 08/15/25 19:28 Dose: 81 mg Documented By: VALDEZ Lactated Ringer's (Lactated Ringers) 500 mls @ 500 mls/hr IV .Q1H ONE Stop: 08/15/25 20:25 Last Admin: 08/15/25 19:52 Dose: Not Given Documented By: SANDIP Non-Admin Reason: Cancelled by Provider Lactated Ringer's (Lactated Ringers) 1,000 mls @ 999 mls/hr IV .Q1H1M ONE Stop: 08/15/25 20:51 Last Infusion: 08/15/25 21:00 Dose: 0 mls/hr Documented By: Admin: 08/15/25 19:54 Dose: 999 mls/hr Documented By: SANDIP Influenza Virus Vaccine Quadrival (Influenza Virus Quadrivalent 0.5 Ml Syringe) 0.5 ml IMi .ONCE ONE Stop: 08/15/25 16:57 Last Admin: 08/15/25 19:28 Dose: 0.5 ml Documented By: BD See above Consultations Consultation(s) initiated? (list below): Yes Diagnosis Chest Pain Differential Diagnosis: other Most likely diagnosis given after review of the tests above:: Acute on chronic kidney injury, chest pain Admission Indicated Admission indicated?: indicated Admission Request Was there a request for admission?: Yes Admission Attestation Admission request attestation: Discussed case with Hospitalist service regarding admission. Discussed patients ED course, exam findings, labs, and radiology results. The Hospitalist [agrees] to accept the patient for admission. Disposition Plan Disposition Plan: Admit Critical Care Time Critical Care Time Critical Care Time: Yes Total Critical Care Time (min.): 36 Attestation: Due to a high probability of clinically significant, life threatening deterioration, the patient required my highest level of preparedness to intervene emergently and I personally spent this critical care time directly and personally managing the patient. This critical care time included obtaining a history; examining the patient; pulse oximetry; ordering and review of studies; arranging urgent treatment with development of a management plan; evaluation of patient's response to treatment; frequent reassessment; and, discussions with other providers. This critical care time was performed to assess and manage the high probability of imminent, life-threatening deterioration that could result in multi-organ failure. It was exclusive of separately billable procedures and treating other patients and teaching time. Please see MDM section and the rest of the note for further information on patient assessment and treatment. Discharge Plan Plan Patient Disposition: Admit Acute Care w/in Hospital Prescriptions/Referrals Prescriptions/Med Rec: No Action mycophenolate mofetil [CellCept] 250 mg Capsule 1,000 mg PO BID sodium bicarbonate 650 mg Tablet 1,250 mg PO BID pravastatin 40 mg Tablet 40 mg PO QDAY calcium carbonate 500 mg calcium (1,250 mg) tablet 500 mg PO BID losartan 25 mg Tablet 25 mg PO QDAY furosemide [Lasix] 20 mg Tablet 20 mg PO QDAY ergocalciferol (vitamin D2) [Vitamin D2] 1,250 mcg (50,000 unit) Capsule 1,250 mcg PO QWEEK tacrolimus 1 mg Capsule 1 mg PO Q12H melatonin 5 mg Tablet 5 mg PO HS PRN (Reason: Insomnia) fluconazole 200 mg Tablet 200 mg PO QDAY prednisone 5 mg Tablet 10 mg PO QDAY prednisone 1 mg Tablet 1 mg PO QDAY pantoprazole 40 mg Tablet,Delayed Release (Dr/Ec) 40 mg PO DAILY ferrous sulfate 325 mg (65 mg iron) Tablet 325 mg PO TID aspirin 81 mg Tablet,Chewable 81 mg PO QDAY atovaquone 750 mg/5 mL Suspension 1,500 mg PO DAILY Problem List Clinical Impression: Acute kidney injury superimposed on CKD, Chest pain Patient/Caregiver Discharge Instructions Print Language: Albanian Stand Alone Forms: Elena Award Info., Patient Portal Info Letter
[2025-08-15] MEDS: INFLUENZA VIRUS QUADRIVALENT 0.5 ML SYRINGE IMi (19:28)
[2025-08-15] MEDS: ASPIRIN 81 MG CHEW PO (19:28)
[2025-08-15 19:44] VITALS: BP 163/95; PULSE 98; RESP 15; O2SAT 96
[2025-08-15] MEDS: RINGERS LACTATED 1000 ML 1,000 ML 999 ML IV (19:54)
[2025-08-15 20:57] LABS: Troponin I < 0.020 ng/mL (0.0-0.045)
--- NOTE | 2025-08-15 21:37 | ECHO_ITS ---
Transthoracic Echo Report Ht (in): 71 Wt (lb): 208 Exam Location: Echo Lab Status: Emergency Wealth Management Director: Trice Julian Indications: Procedure Performed: BP: 115 / 69 HR: 68 Technical Quality: Technically difficult study MEASUREMENTS (Male / Female) Normal Values 2D ECHO LV Diastolic Diameter PLAX 5.3 cm 4.2 - 5.9 / 3.9 - 5.3 cm LV Systolic Diameter PLAX 3.7 cm IVS Diastolic Thickness 0.8 cm 0.6 - 1.0 / 0.6 - 0.9 cm LVPW Diastolic Thickness 1.1 cm 0.6 - 1.0 / 0.6 - 0.9 cm LV Relative Wall Thickness 0.4 LVOT Diameter 2.0 cm Aortic Root Diameter 3.3 cm LV Ejection Fraction MOD 4C 51.4 % LV Cardiac Index MOD 4C 1896.6 cm?/min?m? LV Ejection Fraction 4C AL 51.9 % LV Cardiac Index 4C AL 2010.8 cm?/min?m? LV Ejection Fraction MOD 2C 50.7 % LV Cardiac Index MOD 2C 1279.9 cm?/min?m? LV Ejection Fraction 2C AL 52.7 % LV Cardiac Index 2C AL 1390.8 cm?/min?m? LA Volume Index 30.0 cm?/m? 16 - 28 cm?/m? DOPPLER AV Peak Velocity 105.0 cm/s AV Peak Gradient 4.4 mmHg AV Mean Gradient 3.0 mmHg AV Velocity Time Integral 24.0 cm LVOT Peak Velocity 94.6 cm/s LVOT Peak Gradient 3.6 mmHg LVOT Velocity Time Integral 20.4 cm LVOT Cardiac Index 1986.1 cm?/min?m? AV Area Cont Eq vti 2.7 cm? AV Area Cont Eq pk 2.8 cm? MV Area PHT 4.0 cm? Mitral E Point Velocity 101.0 cm/s Mitral A Point Velocity 37.3 cm/s Mitral E to A Ratio 2.7 LV E' Lateral Velocity 14.9 cm/s Mitral E to LV E' Lateral Ratio 6.8 LV E' Septal Velocity 8.8 cm/s Mitral E to LV E' Septal Ratio 11.5 FINDINGS Left Ventricle Normal left ventricular size, wall thickness, systolic function with no obvious regional wall motion abnormalities. Normal left ventricular diastolic filling pattern for age. The ejection fraction is visually estimated at 65%. Right Ventricle The right ventricular size is mildy increased with normal systolic function. Left Atrium The left atrium is normal by two-dimensional, color flow and Doppler imaging with no structural abnormalities, no thrombus formation present. Right Atrium The right atrium is normal by two-dimensional imaging, color flow and Doppler imaging with no structural abnormalities, no thrombus formation present. Atrial Septum The interatrial septum appears normal with no evidence of a shunt. Aorta The aorta is normal by two-dimensional, color flow and Doppler interrogation. Mitral Valve The mitral valve is normal by two-dimensional, color flow and Doppler interrogation. Trace mitral regurgitation. Aortic Valve The aortic valve is trileaflet and normal by two-dimensional, color flow and Doppler interrogation. There is no significant aortic valve regurgitation. Tricuspid Valve The tricuspid valve is normal by two-dimensional, color flow and Doppler interrogation. There is no significant tricuspid valve regurgitation. Pulmonic Valve The pulmonic valve is not well visualized. There is no significant pulmonic valve regurgitation. Vessels Inferior vena cava not well visualized. Pericardium The pericardium is normal by two-dimensional imaging. There is no significant pericardial effusion. CONCLUSIONS Indication: C/F pericarditis Normal LV size and wall thickness. Estimated EF at 65%. The RV size is mildy increased with normal systolic function. Trace mitral and trace tricuspid regurgitation No pericardial effusion Mckenzie Valdes (Electronically Signed) Final Date: 16 August 2025 14:20
[2025-08-15 22:05] LABS: C-Reactive Protein < 0.5 mg/dL (0.0-0.9)
--- NOTE | 2025-08-15 22:14 | PD.RESHP ---
Documentation for date of: 08/15/25 HPI History of Present Illness History of present illness: Mr. Mckeon is a 60 y/o male with PMH CAD s/p CABG and stent, s/p heart transplant (2022, [facility] in [place]), CKD stage 4 (refused kidney transplant, follows with Dr. Ruth), HTN , T2DM, HLD who presented with chest pain x3 weeks. Sharp, stabbing pain that lasts ~30 seconds per episode, several episodes per day, right-sided, not associated with activity/rest. Worse with laying down, improved with leaning forward. Notes that he has been lifting weights more often lately. On immunosuppressants. Denies acid reflux, abdominal pain, radiation of pain, headache, acute changes in vision, lower extremity swelling, shortness of breath, changes in BM, N/V, subjective fevers, chills. Recently had bronchitis in June, seen in ED and prescribed Doxycycline, amoxicillin/clavulanate. Patient still has productive cough. ED course: Afebrile, tachycardic 104, BP 174/96-163/95. Labs significant for hgb 12.9, HCT 28.1, BUN 31, Cr 3, eGFR 23, BG 210, albumin 5.2. Coags, troponin, BNP, CXR unremarkable. EKG showed sinus tahcycardia HR 102, QTc 417. No CA depression, diffuse ST elevation, T wave inversion. Given flu vaccine, ASA 81 mg PO, 1L LR. PMHx: CAD s/p CABG and stent, s/p heart transplant (2022, [facility] in [place]), CKD stage 4 (refused kidney transplant), HTN , T2DM, HLD Allergies: Heparin Home meds: Sodium bicarb 10 g BID Mycophenolate 500 mg BID Amlodipine 5 mg daily Gabapentin 100 mg TID Tacrolimus 1 mg in AM and 1.5 mg QHS Aspirin 81 mg daily Oyster shell 500 mg BID Jardiance 10 mg daily Rosuvastatin 20 mg QHS SgHx: CABG, heart transplant (2022, [facility] in [place]) SHx: Denies tobacco. Occasional EtOH. Denies recreational drug use. FHx: DM, HLD Review of Systems Review of Systems Narrative Review of Systems: 14 point ROS negative other than HPI Exam Vital Signs Temp Pulse Resp BP Pulse Ox O2 Del Method 98.7 F 98 15 163/95 H 96 Room Air 08/15/25 17:09 08/15/25 19:44 08/15/25 19:44 08/15/25 19:44 08/15/25 19:44 08/15/25 19:44 Narrative Exam General: No acute distress, well nourished Eye: PERRL, EOMI, normal conjunctiva, no scleral icterus HENT: Normocephalic, atraumatic, normal hearing, moist oral mucosa Neck: Supple, non-tender, no JVD, no lymphadenopathy Lungs: Clear to auscultation bilaterally, non-labored respirations, symmetric chest rise, no use of accessory muscles Heart: Normal S1 and S2, no S3 or S4 appreciated. Tachycardic, minimal friction rub. 1+ pitting edema b/l LE Abdomen: Soft, non-tender, non-distended, normal bowel sounds. No guarding or rebound tenderness. Musculoskeletal: Normal range of motion and strength, no tenderness or swelling. No TTP of chest Skin: Skin is warm, dry. Healed midline chest scar. Neurologic: Alert, awake and oriented x3. CN II-XII grossly intact. No focal neuro deficits. No signs of meningeal irritation noted. Psychiatric: Cooperative, appropriate mood and affect Results: Labs 08/15/25 18:28 08/15/25 18:28 Labs: Short CBC 08/15/25 Range/Units 18:28 WBC 9.1 (3.8-10.6) Thou/mm3 Hgb 12.9 L (13.5-16.0) g/dL Hct 38.1 L (41.0-53.0) % Plt Count 218 (140-440) Thou/mm3 BMP 08/15/25 18:28 Sodium 137 Potassium 5.0 Chloride 102 Carbon Dioxide 22.6 BUN 41 H Creatinine 3.0 H Glucose 210 H Calcium 9.9 Cardiac Enzymes 08/15/25 08/15/25 Range/Units 18:28 20:10 Troponin I < 0.020 < 0.020 (0.0-0.045) ng/mL Liver Function 08/15/25 Range/Units 18:28 Total Bilirubin 0.9 (0.3-1.2) mg/dL AST 13 (0-34) U/L ALT 29 (10-49) U/L Alkaline Phosphatase 106 (46-116) U/L Albumin 5.2 H (3.4-4.8) gm/dL Quality Measures Quality Measures none Medications Home Medications and Allergies Home Medications ?Medication ?Instructions ?Recorded ?Confirmed ?Type aspirin 81 mg chewable tablet 81 mg PO QDAY 10/13/23 10/13/23 History atovaquone 750 mg/5 mL oral 1,500 mg PO DAILY 10/13/23 10/13/23 History suspension calcium carbonate 500 mg PO BID 10/13/23 10/13/23 History ergocalciferol (vitamin D2) 1,250 1,250 mcg PO QWEEK 10/13/23 10/13/23 History mcg (50,000 unit) capsule (Vitamin D2) ferrous sulfate 325 mg (65 mg 325 mg PO TID 10/13/23 10/13/23 History iron) tablet fluconazole 200 mg tablet 200 mg PO QDAY 10/13/23 10/13/23 History furosemide 20 mg tablet (Lasix) 20 mg PO QDAY 10/13/23 10/13/23 History losartan 25 mg tablet 25 mg PO QDAY 10/13/23 10/13/23 History melatonin 5 mg tablet 5 mg PO HS PRN Insomnia 10/13/23 10/13/23 History mycophenolate mofetil 250 mg 1,000 mg PO BID 10/13/23 10/13/23 History capsule (CellCept) pantoprazole 40 mg tablet,delayed 40 mg PO DAILY 10/13/23 10/13/23 History release pravastatin 40 mg tablet 40 mg PO QDAY 10/13/23 10/13/23 History prednisone 1 mg tablet 1 mg PO QDAY 10/13/23 10/13/23 History prednisone 5 mg tablet 10 mg PO QDAY 10/13/23 10/13/23 History sodium bicarbonate 650 mg tablet 1,250 mg PO BID 10/13/23 10/13/23 History tacrolimus 1 mg capsule, 1 mg PO Q12H 10/13/23 10/13/23 History immediate-release Allergies Allergy/AdvReac Type Severity Reaction Status Date / Time heparin Allergy Unknown Verified 08/15/25 16:57 Visit Medications Acetaminophen (Acetaminophen 325 Mg Tablet) 650 mg PO Q6H PRN PRN Reason: Fever >100.3 Stop: 09/14/25 21:26 Acetaminophen (Acetaminophen 325 Mg Tablet) 650 mg PO Q6H PRN PRN Reason: PAIN SCALE 1-3 (mild Stop: 09/14/25 21:26 Amlodipine Besylate (Amlodipine Besylate 5 Mg Tablet) 5 mg PO QDAY DESTINY Stop: 09/15/25 08:59 Aspirin (Aspirin Ec 81 Mg Tabec) 81 mg PO QDAY DESTINY Stop: 09/15/25 08:59 Atorvastatin Calcium (Atorvastatin Calcium 20 Mg Tablet) 20 mg PO HS DESTINY Stop: 09/15/25 20:59 Dextrose (Dextrose 50%-Water Inj 50 Ml Syringe) 25 ml IV Q15MIN PRN PRN Reason: BG 50-70 responsive npo pt Stop: 09/14/25 21:26 Dextrose (Dextrose 50%-Water Inj 50 Ml Syringe) 50 ml IV Q15MIN PRN PRN Reason: BG <50 OR BG <70 & pt unresponsive Stop: 09/14/25 21:26 Gabapentin (Gabapentin 100 Mg Capsule) 100 mg PO TID DESTINY Stop: 09/14/25 21:59 Glucagon (Glucagon Inj 1 Mg Vial) 1 mg IM Q15MIN PRN PRN Reason: BG <70, and no IV access Insulin Human Lispro (Insulin Lispro (Admelog) 1 Unit/0.01 Ml Unit) 0 unit SC AC [facility]; Protocol Stop: 09/15/25 07:29 Mycophenolate Mofetil (Mycophenolate 250 Mg Capsule) 500 mg PO BID [facility] Stop: 09/14/25 21:29 Ondansetron HCl (Ondansetron Inj 2 Mg/Ml Inj 2 Ml) 4 mg IVP Q6H PRN; Protocol PRN Reason: NAUSEA OR VOMITING Stop: 09/14/25 21:26 Tacrolimus (Tacrolimus 1 Mg Capsule) 1 mg PO DAILY DESTINY Stop: 09/15/25 08:59 Tacrolimus (Tacrolimus 0.5 Mg Capsule) 1.5 mg PO HS DESTINY Stop: 09/15/25 21:59 Discontinued Medications Aspirin (Aspirin 81 Mg Chew) 81 mg PO X1 ONE Stop: 08/15/25 18:12 Last Admin: 08/15/25 19:28 Dose: 81 mg Enoxaparin Sodium (Enoxaparin Sod Inj 40 Mg/0.4 Ml Syringe) 40 mg SC QDAY DESTINY Stop: 08/30/25 08:59 Lactated Ringer's (Lactated Ringers) 500 mls @ 500 mls/hr IV .Q1H ONE Stop: 08/15/25 20:25 Last Admin: 08/15/25 19:52 Dose: Not Given Lactated Ringer's (Lactated Ringers) 1,000 mls @ 999 mls/hr IV .Q1H1M ONE Stop: 08/15/25 20:51 Last Infusion: 08/15/25 21:00 Dose: 0 mls/hr Influenza Virus Vaccine Quadrival (Influenza Virus Quadrivalent 0.5 Ml Syringe) 0.5 ml IMi .ONCE ONE Stop: 08/15/25 16:57 Last Admin: 08/15/25 19:28 Dose: 0.5 ml Assessment & Plan Plan Mr. Mckeon is a 60 y/o male with PMH CAD s/p CABG and stent, s/p heart transplant (2022, [facility] in [place]), CKD stage 4 (refused kidney transplant, follows with Dr. Ruth), HTN, T2DM, HLD who presented with chest pain x3 weeks. Admitted for chest les w/u, possible pericarditis. #Chest pain #c/f pericarditis Sharp, stabbing chest pain that lasts ~30 seconds per episode x3 weeks, several episodes per day, right-sided, positional, associated with minimal friction rub. No hypotension, muffled heart sounds, JVD -- little concern for tamponade On immunosuppressants given s/p heart transplant Troponin negative, BNP negative, CXR unremarkable. EKG showed sinus tachycardia HR 102, QTc 417, no CA depression, diffuse ST elevation, T wave inversion DDX: pericarditis, costochondritis, residual bronchitis Given ASA 81 mg, 1L LR in ED Plan: - Pending ESR, CRP - Echo to evaluate for effusion, thickened/calcified pericardium - Can consider starting colchicine (CrCl 15) if kidney function improves - Avoid NSAIDs given CKD #CAD #s/p stent, CABG #s/p heart transplant Plan: - Continue home meds: - Mycophenolate 500 mg BID - Tacrolimus 1 mg in AM and 1.5 mg QHS - Aspirin 81 mg daily #EDER on CKD vs worsening CKD stage 4 On admit: BUN 41, Cr 3, eGFR 23 Baseline: Cr 2-2.9, eGFR 30s Follows with Dr. Ruth. Pt previously refused kidney transplant Given 1 L LR in ED Plan: - Continue to monitor with daily CMP - Avoid nephrotoxic agents as much as possible - Avoid NSAIDs, diuretics #HTN Plan: - Amlodipine 5 mg daily (home med) #T2DM Home med: Jardiance 10 mg daily Plan: - SSI ACHS #HLD Home med: Rosuvastatin 20 mg QHS Plan: - Atorvastatin 20 mg QHS Checklist Dispo: Admit to tele for chest pain w/u Diet: Cardiac, renal Bowel Reg: n/a VTE ppx: SCDs (allergic to heparin) GI ppx: n/a Pain mgmt: Tylenol PO PRN, morphine 2 mg IV q6h PRN Code status: full Plan discussed with Dr. Muse and Dr. 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 The patient has history of chest wall infection after he had the transplant. He recently experienced right-sided stabbing pain over the last 3 weeks. He denies shortness of breath. He is doing his usual activity. He rides a bicycle. He has no fever no cough. The patient has been following with Dr Ruth for chronic kidney disease. He has a creatinine of 3.0 today. Patient will be admitted for further evaluation appears right-sided chest pain he will be referred to Dr Ruth for his chronic kidney disease. He said that he has gained at least 3 pounds over the last several days. He has no hematuria. He has no leg pain no cramping no edema. I discussed with and supervised the resident physician who took care of this patient. I agree with the assessment and plan as above.
[2025-08-15] MEDS: GABAPENTIN 100 MG CAPSULE PO (22:15)
[2025-08-15] MEDS: MYCOPHENOLATE 250 MG CAPSULE 500 MG PO (22:15)
[2025-08-15 22:28] LABS: Sed Rate (ESR) 24 mm/hr (0-20)
[2025-08-15 22:45] VITALS: BMI 29.1
[2025-08-16] VITALS (7 sets, daily range): BP systolic 115–161; BP diastolic 69–99; PULSE 68–88; RESP 16; TEMP 36–36.6; O2SAT 95–99; BMI 30.2
[2025-08-16] MEDS: GABAPENTIN 100 MG CAPSULE PO ×2 (05:15→14:05)
[2025-08-16 05:48] LABS: Basophils # (Auto) 0.1 Thou/mm3 (0.0-0.2); Basophils % (Auto) 1 % (0-2.5); Eosinophils # (Auto) 0.6 Thou/mm3 (0.0-0.5); Eosinophils % (Auto) 8 % (0-10); Hematocrit 33.9 % (41.0-53.0); Hemoglobin 11.5 g/dL (13.5-16.0); Immature Granulocytes Auto 0.02 Thou/mm3 (0.00-0.00); Lymphocytes # (Auto) 2.7 Thou/mm3 (1.0-4.8); Lymphocytes % (Auto) 33 % (10-50); Mean Corpuscular HGB Conc 33.9 g/dl (31.0-37.0); Mean Corpuscular Hemoglobin 29.0 pg (25.0-35.0); Mean Corpuscular Volume 85 fL (80-100); Monocytes # (Auto) 0.6 Thou/mm3 (0.0-0.8); Monocytes % (Auto) 7 % (0-12); Neutrophils # (Auto) 4.3 Thou/mm3 (1.8-7.7); Neutrophils % (Auto) 51 % (37-80); Nucleated Red Blood Cell # 0.00 Thou/mm3 (0.00-0.00); Nucleated Red Blood Cell % 0 /100 WBC (0); Platelet Count 163 Thou/mm3 (140-440); RDW Standard Deviation 43.8 fL (35.1-43.9); Red Blood Count 3.97 Miln/mm3 (4.50-5.90); White Blood Count 8.4 Thou/mm3 (3.8-10.6)
[2025-08-16 06:14] LABS: Alanine Aminotransferase 24 U/L (10-49); Albumin, Serum 4.2 gm/dL (3.4-4.8); Albumin/Globulin Ratio 1.7 (1.2-2.2); Alkaline Phosphatase 72 U/L (46-116); Anion Gap 12 (7-16); Aspartate Amino Transferase 24 U/L (0-34); BUN/Creatinine Ratio 17 Ratio (12-20); Bilirubin,Total 0.9 mg/dL (0.3-1.2); Blood Urea Nitrogen 36 mg/dL (9-23); Calcium 8.9 mg/dL (8.3-10.6); Calcium (Corrected) 8.9 mg/dL (8.5-10.1); Carbon Dioxide 20.8 mMol/L (20.0-31.0); Chloride 107 mMol/L (98-107); Creatinine (Component) 2.1 mg/dL (0.6-1.3); Estimated Creatinine Clearance 42.8 mL/min (>60); Globulin 2.5 gm/dL (2.3-3.5); Glucose 165 mg/dL (74-106); Magnesium 2.0 mg/dL (1.6-2.6); Osmolality,Calculated 291 (275-295); Phosphorous 3.5 mg/dL (2.4-5.1); Potassium 4.3 mMol/L (3.4-5.1); Sodium 140 mMol/L (136-145); Total Protein 6.7 gm/dL (5.7-8.2); eGFR 35 See Note
[2025-08-16] MEDS: ASPIRIN EC 81 MG TABEC PO (09:30)
[2025-08-16] MEDS: MYCOPHENOLATE 250 MG CAPSULE 500 MG PO (10:16)
[2025-08-16] MEDS: TACROLIMUS 1 MG CAPSULE PO (10:17)
[2025-08-16] MEDS: INSULIN LISPRO (AdmeLOG) 1 UNIT/0.01 ML UNIT SC (12:13)
--- NOTE | 2025-08-16 13:03 | ESCONSULT_ITS ---
<Statement entered by Parviz Goldsmith MD - 08/21/25 13:36> I personally examined the patient evaluated the patient with resident physician Dr. Trav GLEASON PGY2 patient has known history of CAD bypass surgery subsequently cardiac transplantation sternal wound nonunion came to the hospital right side atypical chest pain completely noncardiac in nature evaluated patient examined appears to be doing clinically well cardiac echo showed normal ejection fraction patient can be discharged home to have further evaluation by his outpatient research archaeologist. Agree with the treatment plan recommendation as documented by resident physician will see him again if necessary HPI Data of Consult Requesting Physician: Damien Tucker MD Admitting Provider: Damien Tucker MD Attending Provider: Damien Tucker MD Primary Care Provider: Physician No Primary/Family Consult Narrative History of present illness: 61-year-old male with history of CAD status post CABG and cardiac transplant (at [facility] in 2022) complicated by Staph aureus thoracic wall infection, CKD stage IV (follows Dr Ruth), hypertension, type 2 diabetes mellitus, hyperlipidemia who presented with right-sided chest discomfort for 3 weeks. Describes it as spasms that occur on the right side and has noticed that occurring when he leans over. Can have multiple episodes per day and are not necessarily associated with activity or rest. Of note, he states that he has started to lift weights and pain is not reproducible with palpation. He was also recently diagnosed with bronchitis and was given a course of antibiotics that has since resolved. Denies any fever, chills, sweats and states that discomfort is not improved when leaning forward. Cardiology consulted for concern of pericarditis. cc:: cc: Damien Tucker MD Review of Systems Review of Systems Systems Reviewed: All systems reviewed, normal except as documented Exam Vital Signs Temp Pulse Resp BP Pulse Ox O2 Del Method 97.8 F 80 16 134/85 H 99 Room Air 08/16/25 12:00 08/16/25 12:00 08/16/25 12:00 08/16/25 12:00 08/16/25 12:00 08/16/25 12:00 Narrative Exam General: AOx3, no acute distress, able to speak full sentences HEENT: NC/AT, mucous membranes moist, bilateral sclera anicteric Cardiovascular: regular rate and rhythm, S1/S2 present, no murmurs appreciated Pulmonary: clear to auscultation bilaterally, no rales/rhonchi/wheezes Abdominal: soft, non-tender, non-distended, no rebound/guarding, normal bowel sounds present Musculoskeletal: normal ROM, no peripheral edema Skin: warm and dry, intact, no rashes, multiple scars on anterior chest wall and epigastric area that are healed well (C/D/I) Neuro: CN II-XII intact, no focal deficits Results Labs 08/16/25 04:59 08/16/25 04:59 Labs: Short CBC 08/15/25 08/16/25 Range/Units 18:28 04:59 WBC 9.1 8.4 (3.8-10.6) Thou/mm3 Hgb 12.9 L 11.5 L (13.5-16.0) g/dL Hct 38.1 L 33.9 L (41.0-53.0) % Plt Count 218 163 D (140-440) Thou/mm3 BMP 08/15/25 08/16/25 18:28 04:59 Sodium 137 140 Potassium 5.0 4.3 D Chloride 102 107 Carbon Dioxide 22.6 20.8 BUN 41 H 36 H Creatinine 3.0 H 2.1 H D Glucose 210 H 165 H Calcium 9.9 8.9 Cardiac Enzymes 08/15/25 08/15/25 Range/Units 18:28 20:10 Troponin I < 0.020 < 0.020 (0.0-0.045) ng/mL Liver Function 08/15/25 08/16/25 Range/Units 18:28 04:59 Total Bilirubin 0.9 0.9 (0.3-1.2) mg/dL AST 13 24 (0-34) U/L ALT 29 24 (10-49) U/L Alkaline Phosphatase 106 72 D (46-116) U/L Albumin 5.2 H 4.2 D (3.4-4.8) gm/dL Quality Measures Quality Measures none Medications Home Medications and Allergies Home Medications ?Medication ?Instructions ?Recorded ?Confirmed ?Type aspirin 81 mg chewable tablet 81 mg PO QDAY 10/13/23 1 History calcium carbonate 500 mg PO BID 10/13/2308/16 History mycophenolate mofetil 250 mg 500 mg PO BID 10/13/23 History capsule (CellCept) sodium bicarbonate 650 mg tablet 650 mg PO BID 3 08/16/25 History tacrolimus 1 mg capsule, 1 mg PO QAM 10/13/23 5 History immediate-release amlodipine 5 mg tablet 5 mg PO DAILY 08/16/2508/16 History calcium 500 mg (as 1 tab PO BID 08/16/25 History carbonate)-vitamin D3 5 mcg (200 unit) tablet (Oyster Shell Calcium-Vitamin D3) empagliflozin 10 mg tablet 10 mg PO QAM 08/16/2508/16 History (Jardiance) gabapentin 100 mg capsule 100 mg PO TID 08/16/2508/16 History rosuvastatin 20 mg tablet 20 mg PO .QHS 08/16/2508/16 History tacrolimus 0.5 mg capsule, 1.5 mg PO .QHS 08/16/25 History immediate-release Allergies Allergy/AdvReac Type Severity Reaction Status Date / Time heparin Allergy Unknown Verified 08/15/25 16:57 Visit Medications Acetaminophen (Acetaminophen 325 Mg Tablet) 650 mg PO Q6H PRN PRN Reason: Fever >100.3 Stop: 09/14/25 21:26 Acetaminophen (Acetaminophen 325 Mg Tablet) 650 mg PO Q6H PRN PRN Reason: PAIN SCALE 1-3 (mild Stop: 09/14/25 21:26 Amlodipine Besylate (Amlodipine Besylate 5 Mg Tablet) 5 mg PO QDAY DESTINY Stop: 09/15/25 08:59 Last Admin: 08/16/25 09:29 Dose: 5 mg Aspirin (Aspirin Ec 81 Mg Tabec) 81 mg PO QDAY DESTINY Stop: 09/15/25 08:59 Last Admin: 08/16/25 09:30 Dose: 81 mg Atorvastatin Calcium (Atorvastatin Calcium 20 Mg Tablet) 20 mg PO HS DESTINY Stop: 09/15/25 20:59 Dextrose (Dextrose 50%-Water Inj 50 Ml Syringe) 25 ml IV Q15MIN PRN PRN Reason: BG 50-70 responsive npo pt Stop: 09/14/25 21:26 Dextrose (Dextrose 50%-Water Inj 50 Ml Syringe) 50 ml IV Q15MIN PRN PRN Reason: BG <50 OR BG <70 & pt unresponsive Stop: 09/14/25 21:26 Gabapentin (Gabapentin 100 Mg Capsule) 100 mg PO TID DESTINY Stop: 09/14/25 21:59 Last Admin: 08/16/25 05:15 Dose: 100 mg Glucagon (Glucagon Inj 1 Mg Vial) 1 mg IM Q15MIN PRN PRN Reason: BG <70, and no IV access Insulin Human Lispro (Insulin Lispro (Admelog) 1 Unit/0.01 Ml Unit) 0 unit SC AC [facility]; Protocol Stop: 09/15/25 07:29 Last Admin: 08/16/25 12:13 Dose: 1 unit Morphine Sulfate (Morphine Sulf Inj 4 Mg/Ml Vial) 2 mg IVP Q6HR PRN PRN Reason: Pain 4-8 Stop: 08/20/25 23:09 Mycophenolate Mofetil (Mycophenolate 250 Mg Capsule) 500 mg PO BID [facility] Stop: 09/14/25 21:29 Last Admin: 08/16/25 10:16 Dose: 500 mg Ondansetron HCl (Ondansetron Inj 2 Mg/Ml Inj 2 Ml) 4 mg IVP Q6H PRN; Protocol PRN Reason: NAUSEA OR VOMITING Stop: 09/14/25 21:26 Sodium Bicarbonate (Sodium Bicarbonate 650 Mg Tablet) 650 mg PO BID DESTINY Stop: 09/15/25 12:14 Tacrolimus (Tacrolimus 1 Mg Capsule) 1 mg PO DAILY DESTINY Stop: 09/15/25 08:59 Last Admin: 08/16/25 10:17 Dose: 1 mg Tacrolimus (Tacrolimus 0.5 Mg Capsule) 1.5 mg PO HS DESTINY Stop: 09/15/25 21:59 Discontinued Medications Aspirin (Aspirin 81 Mg Chew) 81 mg PO X1 ONE Stop: 08/15/25 18:12 Last Admin: 08/15/25 19:28 Dose: 81 mg Enoxaparin Sodium (Enoxaparin Sod Inj 40 Mg/0.4 Ml Syringe) 40 mg SC QDAY DESTINY Stop: 08/30/25 08:59 Lactated Ringer's (Lactated Ringers) 500 mls @ 500 mls/hr IV .Q1H ONE Stop: 08/15/25 20:25 Last Admin: 08/15/25 19:52 Dose: Not Given Lactated Ringer's (Lactated Ringers) 1,000 mls @ 999 mls/hr IV .Q1H1M ONE Stop: 08/15/25 20:51 Last Infusion: 08/15/25 21:00 Dose: 0 mls/hr Influenza Virus Vaccine Quadrival (Influenza Virus Quadrivalent 0.5 Ml Syringe) 0.5 ml IMi .ONCE ONE Stop: 08/15/25 16:57 Last Admin: 08/15/25 19:28 Dose: 0.5 ml Sodium Bicarbonate (Sodium Bicarbonate 650 Mg Tablet) 1,250 mg PO BID DESTINY Stop: 09/15/25 08:59 Assessment & Plan Plan 61-year-old male with history of CAD status post CABG and cardiac transplant (at [facility] in 2022) complicated by Staph aureus thoracic wall infection, CKD stage IV (follows Dr Ruth), hypertension, type 2 diabetes mellitus, hyperlipidemia who is admitted and cardiology consulted for concerns of pericarditis. #? Pericarditis #History of coronary artery disease #Status post CABG and cardiac transplant in 2022 #Complicated by Staph aureus thoracic wall infection Presents with right-sided chest discomfort described as tightness. Tightness occurs when leaning forward, not improved. No fever, chills, sweats, shortness of breath, pain not reproducible with palpation or pleuritic. Vital signs stable/afebrile. No leukocytosis, ESR slightly elevated but CRP within normal limits. EKG reviewed and per review, no signs of ST elevations in multiple leads. Echo obtained and EF % 65%, RV size mildly increased with normal systolic function, trace MR and TR without signs of pericardial effusion. ? Due to low concern for pericarditis, no need for colchicine/NSAIDs ? Can be discharged from cardiology standpoint #Chronic kidney disease #Hypertension #Type 2 diabetes mellitus #Hyperlipidemia ? Continue management per primary team ----- Plan discussed with attending physician Dr. Agus Gleason MD PGY-2 Internal Medicine
--- NOTE | 2025-08-16 13:45 | PD.RESPRO ---
Documentation for date of: 08/16/25 Exam Vital Signs Temp Pulse Resp BP Pulse Ox O2 Del Method 97.8 F 80 16 134/85 H 99 Room Air 08/16/25 12:00 08/16/25 12:00 08/16/25 12:00 08/16/25 12:00 08/16/25 12:00 08/16/25 12:00 Objective Labs 08/16/25 04:59 08/16/25 04:59 Labs: Laboratory Results - last 24 hr 08/15/25 08/15/25 08/16/25 18:28 20:10 04:59 WBC 9.1 8.4 RBC 4.43 L 3.97 L Hgb 12.9 L 11.5 L Hct 38.1 L 33.9 L MCV 86 85 MCH 29.1 29.0 MCHC 33.9 33.9 RDW Std Deviation 44.1 H 43.8 Plt Count 218 163 D Neut % (Auto) 50 51 Lymph % (Auto) 35 33 [place] % (Auto) 6 7 Eos % (Auto) 8 8 Baso % (Auto) 1 1 Neut # (Auto) 4.6 4.3 Lymph # (Auto) 3.2 2.7 [place] # (Auto) 0.6 0.6 Eos # (Auto) 0.7 H 0.6 H Baso # (Auto) 0.1 0.1 Immature Gran # (Auto) 0.02 H 0.02 H Absolute Nucleated RBC 0.00 0.00 Immature Gran % 0 0 Nucleated RBC % 0 0 ESR 24 H PT 10.5 INR 1.0 Sodium 137 140 Potassium 5.0 4.3 D Chloride 102 107 Carbon Dioxide 22.6 20.8 Anion Gap 12 12 BUN 41 H 36 H Creatinine 3.0 H 2.1 H D Estim Creat Clear Calc 29.9 L 42.8 L eGFR 23 L 35 L BUN/Creatinine Ratio 14 17 Glucose 210 H 165 H Calculated Osmolality 289 291 Calcium 9.9 8.9 Corrected Calcium 9.9 8.9 Phosphorus 3.5 Magnesium 2.0 Total Bilirubin 0.9 0.9 AST 13 24 ALT 29 24 Alkaline Phosphatase 106 72 D Troponin I < 0.020 < 0.020 C-Reactive Prot, Quant < 0.5 B-Natriuretic Peptide 55 Total Protein 8.2 6.7 Albumin 5.2 H 4.2 D Globulin 3.0 2.5 Albumin/Globulin Ratio 1.7 1.7 Quality Measures Quality Measures none Assessment & Plan Assessment Current Active Medications: Generic Name Dose Route Start Last Admin Trade Name Freq PRN Reason Stop Dose Admin Acetaminophen 650 mg 08/15/25 21:27 Acetaminophen 325 Mg Tablet PO 09/14/25 21:26 Q6H PRN Fever >100.3 Acetaminophen 650 mg 08/15/25 21:27 Acetaminophen 325 Mg Tablet PO 09/14/25 21:26 Q6H PRN PAIN SCALE 1-3 (mild Amlodipine Besylate 5 mg 08/16/25 09:00 08/16/25 09:29 Amlodipine Besylate 5 Mg Tablet PO 09/15/25 08:59 5 mg QDAY DESTINY Administration Aspirin 81 mg 08/16/25 09:00 08/16/25 09:30 Aspirin Ec 81 Mg Tabec PO 09/15/25 08:59 81 mg QDAY DESTINY Administration Atorvastatin Calcium 20 mg 08/16/25 21:00 Atorvastatin Calcium 20 Mg Tablet PO 09/15/25 20:59 HS DESTINY Dextrose 25 ml 08/15/25 21:27 Dextrose 50%-Water Inj 50 Ml Syringe IV 09/14/25 21:26 Q15MIN PRN BG 50-70 responsive npo pt Dextrose 50 ml 08/15/25 21:27 Dextrose 50%-Water Inj 50 Ml Syringe IV 09/14/25 21:26 Q15MIN PRN BG <50 OR BG <70 & pt unresponsive Gabapentin 100 mg 08/15/25 22:00 08/16/25 05:15 Gabapentin 100 Mg Capsule PO 09/14/25 21:59 100 mg TID DESTINY Administration Glucagon 1 mg 08/15/25 21:27 Glucagon Inj 1 Mg Vial IM Q15MIN PRN BG <70, and no IV access Insulin Human Lispro 0 unit 08/16/25 07:30 08/16/25 12:13 Insulin Lispro (Admelog) 1 Unit/0.01 Ml Unit SC 09/15/25 07:29 1 unit AC DESTINY Administration Protocol Morphine Sulfate 2 mg 08/15/25 23:10 Morphine Sulf Inj 4 Mg/Ml Vial IVP 08/20/25 23:09 Q6HR PRN Pain 4-8 Mycophenolate Mofetil 500 mg 08/15/25 21:30 08/16/25 10:16 Mycophenolate 250 Mg Capsule PO 09/14/25 21:29 500 mg BID DESTINY Administration Ondansetron HCl 4 mg 08/15/25 21:27 Ondansetron Inj 2 Mg/Ml Inj 2 Ml IVP 09/14/25 21:26 Q6H PRN NAUSEA OR VOMITING Protocol Sodium Bicarbonate 650 mg 08/16/25 13:30 Sodium Bicarbonate 650 Mg Tablet PO 09/15/25 13:29 BID DESTINY Tacrolimus 1 mg 08/16/25 09:00 08/16/25 10:17 Tacrolimus 1 Mg Capsule PO 09/15/25 08:59 1 mg DAILY DESTINY Administration Tacrolimus 1.5 mg 08/16/25 22:00 Tacrolimus 0.5 Mg Capsule PO 09/15/25 21:59 HS DESTINY
[2025-08-16] MEDS: SODIUM BICARBONATE 650 MG TABLET PO (14:05)
--- NOTE | 2025-08-16 15:23 | ESDS_ITS ---
<Statement entered by Rachna Mondragon DO - 08/17/25 08:51> I, Rachna Mondragon DO, attest that I was physically present for the paz portions of the service and evaluated the patient with the resident and I reviewed and discussed the case with the resident and agree with the resident's findings and plans of care as documented above <Statement entered by Tiffanie Singh MD - 08/16/25 15:39> Mr. Mckeon is a 60 y/o male with PMH CAD s/p CABG and stent, s/p heart transplant (2022, [facility] in [place]), CKD stage 4 (refused kidney transplant, follows with Dr. Ruth), HTN , T2DM, HLD who presented with chest pain x3 weeks which was progressively getting worse. Patient stated that he has been doing heavy lifting and work out. On presentation patient was hemodynamically stable, labs were insignificant, did revealed CKD with creatinine of 3, BUN of 31, eGFR of 23. All rest of the labs were unremarkable. Troponin x 3 were negative. EKG did not reveal any acute ST changes. Chest x-ray was unremarkable. Patient was admitted for atypical chest pain, with differential diagnosis of costochondritis versus pericarditis. CRP was negative, ESR was slightly elevated, however was not significant. Today upon our evaluation patient was hemodynamically stable. Denied any pain. Any shortness of breath, comfortably laying in bed. Cardiology evaluated the patient, ruled out any pericarditis, echo showed no significant pericardial effusion. The pericardium is normal by two-dimensional imaging. EF of 65%, normal LV size and wall thickness. Patient will be discharged home today to continue home medication as prescribed. Follow-up with PCP 1 to 2 weeks after discharge. Follow-up with nephrology in 1 to 2 weeks after discharge. Follow-up discharge instruction below. All questions and concerns were addressed. Patient again verbalized understanding. I discussed with and supervised the research program internship physician who took care of this patient. I personally saw and examined the patient and discussed the assessment and plan with the entire medicine team, including my attending , I agree with the assessment and plan as documented below Tiffanie Singh M.D. PGY-3 Disclaimer: Despite multiple revisions, due to the dictation software being used, the document bellow may not be free of grammatical errors including phonetic/typographic errors. However, this does not deter from our commitment to providing health care in the patient's best interest in mind. Planned Discharge Date 08/16/25 DS: Providers Provider Date of admission: 08/15/25 21:27 Primary care physician: Physician No Primary/Family Admitting Provider: Damien Tucker MD Attending Provider on Admission: Damien Tucker MD Consults: 08/15/25 22:05 Consult to Cardiology Routine Comment: Consulting Provider: Parviz Goldsmith 08/16/25 03:20 Health Equity Referral - Nutrition Routine Comment: Positive screening for nutrition needs. Health Equity Referral - Utilities Routine Comment: Positive screening for utility assistance needs. Attending Provider on DC: Rachna Mondragon MD Discharging Provider: Rachna Mondragon MD DS: Diagnosis Problem List Completed Was Problem List Reviewed/Reconciled?: Yes Hospital Course Hospital Course Hospital course: 60-year-old male with a history of CAD s/p CABG and stent, orthotopic heart t ransplant (2022, [facility]), CKD stage 4 (declined kidney transplant, follows with Dr. Ruth), hypertension, type 2 diabetes mellitus, and hyperlipidemia, presented with progressive chest pain for three weeks after heavy lifting and exercise. On presentation, he was hemodynamically stable, and labs were notable only for CKD with creatinine 3.0, BUN 31, and eGFR 23; other labs were unremarkable. Serial troponins were negative, EKG showed no acute ischemic changes, and chest X-ray was unremarkable. He was admitted for evaluation of atypical chest pain with differential including costochondritis versus pericarditis. CRP was negative and ESR mildly elevated but not clinically significant. Cardiology was consulted and ruled out pericarditis; echocardiogram showed no pericardial effusion, normal pericardium, normal LV size and wall thickness, and LVEF of 65%. On the day of discharge, the patient was hemodynamically stable, denied chest pain or shortness of breath, and was resting comfortably. The chest pain was deemed most consistent with musculoskeletal etiology. He was discharged home on his current medications, with follow-up arranged with his PCP and nephrology (Dr. Ruth) in 1?2 weeks, and cardiology as scheduled. He was advised to avoid heavy lifting until symptoms fully resolve, monitor for recurrent or worsening chest pain or shortness of breath, and return to the ED if symptoms recur. All questions and concerns were addressed, and the patient verbalized understanding of the discharge plan. Admission diagnoses: #Atypical Chest pain 2/2 to costochondritis, ACS ruled out #CAD s/p stent, CABG, heart transplant #EDER on CKD #CKD stage 4 #HTN #T2DM #HLD Case discussed with my attending Dr. Mondragon , and senior resident, Dr. Francisco Coelho MD PGY-1 Status at Discharge Overall status at discharge: patient is progressing back to baseline Time Spent with Patient Time attestation: Total time spent providing and/or coordinating discharge services: Time spent: Greater than 30 minutes Exam Vital Signs Temp Pulse Resp BP Pulse Ox O2 Del Method 97.8 F 80 16 134/85 H 99 Room Air 08/16/25 12:00 08/16/25 12:00 08/16/25 12:00 08/16/25 12:00 08/16/25 12:00 08/16/25 12:00 Narrative Exam General: AOx3, no acute distress, able to speak full sentences HEENT: NC/AT, mucous membranes moist, bilateral sclera anicteric Cardiovascular: regular rate and rhythm, S1/S2 present, no murmurs appreciated Pulmonary: clear to auscultation bilaterally, no rales/rhonchi/wheezes Abdominal: soft, non-tender, non-distended, no rebound/guarding, normal bowel sounds present Musculoskeletal: normal ROM, no peripheral edema Skin: warm and dry, intact, no rashes, multiple scars on anterior chest wall and epigastric area that are healed well (C/D/I) Neuro: CN II-XII intact, no focal deficits Discharge Plan Plan Patient Disposition: HOME (Self Care) Patient condition on transfer: Stable Care Plan Goals: You were evaluated for chest pain and testing did not show any signs of heart attack or other serious cause. Your pain is most likely due to costochondritis or muscle pain You can take Tylenol as needed for pain management Pain may take several days to weeks to fully resolve Avoid activities that worsen the pain such as heavy lifting or intense body workout Gradual return to normal activities as pain improved Seek immediate medical attention if you experience any of those: 1.New or worsening chest pain 2.Chest pressure with shortness of breath, nausea, sweating 3.Pain radiating to your arm, jaw and or back 4.Lightheadedness or fainting 5.Trouble breathing Follow-up with PCP(your primary doctor) in 1 to 2 weeks after discharge Return to ED anytime symptoms worsens. continue all your home medications Prescriptions/Referrals Prescriptions/Med Rec: Continued amlodipine 5 mg tablet 5 mg PO DAILY Patient Comments: TAKE ONE TABLET BY MOUTH EVERY DAY gabapentin 100 mg capsule 100 mg PO TID Patient Comments: TAKE ONE CAPSULE BY MOUTH THREE TIMES DAILY tacrolimus 0.5 mg capsule 1.5 mg PO .QHS Patient Comments: TACROMILUS 1 MG QAM, 1.5 MG QHS PO calcium carbonate-vitamin D3 [Oyster Shell Calcium-Vit D3] 500 mg-5 mcg (200 unit) tablet 1 tab PO BID Patient Comments: TAKE ONE TABLET BY MOUTH TWICE DAILY Jardiance 10 mg tablet 10 mg PO QAM rosuvastatin 20 mg tablet 20 mg PO .QHS Patient Comments: TAKE ONE TABLET BY MOUTH EVERY DAY mycophenolate mofetil [CellCept] 250 mg Capsule 500 mg PO BID sodium bicarbonate 650 mg Tablet 650 mg PO BID calcium carbonate 500 mg calcium (1,250 mg) tablet 500 mg PO BID tacrolimus 1 mg Capsule 1 mg PO QAM aspirin 81 mg Tablet,Chewable 81 mg PO QDAY Referrals: No Primary/Family,Physician [Primary Care Provider] Patient/Caregiver Discharge Instructions Education Materials: Diabetes and Heart Disease, ED Chest Pain, Uncertain Cause, ED Heart Disease Education Print Language: Guyanese Stand Alone Forms: Elena Award Info., Patient Portal Info Letter, Work/Release Restrictions Discharge Order Discharge Orders: Discharge (Routine); Ordered 08/16/25 Ordered By: Trav Coelho Quality Discharge Quality Measures VTE prophylaxis
--- NOTE | 2025-08-16 15:44 | PC.SS ---
Prakash Mckeon is a 60 year-old male admitted to [facility] for Chest Pain. SS conducted bedside contact with the patient to complete initial assessment and to discuss discharge planning. Role and reason explained. Patient confirmed demographic information. Patient identifies his sister Bernice Holt [phone] as his surrogate decision maker. Pt states he is able to complete all ADL?s independent. Pt does not possesses any DME. Pts PCP is Titi SAWYER (last visit was 3 weeks ago). Pharmacy of choice is [facility]. Discharge options discussed and the pt wishes to return home.? Pt has his bike and wishes to ride it home. No further intervention required at this time, social worker assistant would be available to address any further concerns. DC Plan: Home Contact: Sister Bernice Address: Confirmed on face sheet PCP: Titi
== END 2025-08-16 17:30 | disposition home or self-care (01) ==
LOC: SERX 18:38 → SERHOLD 21:41 → S2NX 08-16 03:35 → SERHOLD 08-16 14:41 → S2NX 08-16 14:41
PROVIDERS: Admitting Provider Internal Medicine; Emergency Provider Emergency Medicine; Visit Provider Internal Medicine
DX: M94.0 Chondrocostal junction syndrome [Tietze] (principal); I25.10 Atherosclerotic heart disease of native coronary artery without angina pectoris; N17.9 Acute kidney failure, unspecified; I12.9 Hypertensive chronic kidney disease with stage 1 through stage 4 chronic kidney disease, or unspecified chronic kidney disease; N18.4 Chronic kidney disease, stage 4 (severe); E11.22 Type 2 diabetes mellitus with diabetic chronic kidney disease; E78.5 Hyperlipidemia, unspecified; Z94.1 Heart transplant status; Z95.1 Presence of aortocoronary bypass graft; Z95.5 Presence of coronary angioplasty implant and graft; Z23 Encounter for immunization
CPT/HCPCS: 36415; 71046; 80053; 83735; 83880; 84100; 84484; 85025; 85610; 85652; 86140; 90471; 90686; 93005; 93306; 96360; 99283; A4649; G0378; J1815; J7120; J7507; J7517; A9270; G0008; J9060